=== PATIENT | female | born 1960 | race Caucasian/White ===

== ENCOUNTER 2016-04-15 12:48 | Emergency (ER) | payer OTHER ==
[2016-04-15] MEDS ORDERED: ONDANSETRON ODT 4 MG TAB ONE (13:48)
[2016-04-15] MEDS ORDERED: DILAUDID 1 MG/ML AMP ONE (13:49)
== END 2016-04-15 14:45 | disposition home or self-care (01) ==
LOC: FASTR 12:48
CPT/HCPCS: 72100 ×2; 73502; 96372 ×2; 99284; J1170